=== PATIENT | female | born 1940 | race Caucasian/White ===

== ENCOUNTER 2019-07-08 07:47 | Inpatient (IN) ==
--- NOTE | 2019-06-04 13:09 | PAT Medication Instructions ---
Medication Instructions Date of Service June 04, 2019 Home Medications clopidogrel [Plavix] 75 mg PO QAM fluticasone propionate [Flonase Allergy Relief] 2 spray INTRANASAL QAM PRN [id number] [Krill Oil ([place] 3 and 6)] 1 cap PO QPM metoprolol tartrate 25 mg PO BID multivitamin 1 tab PO QAM pravastatin 10 mg PO Q2D triamterene-hydrochlorothiazid [Dyazide] 1 cap PO QAM Continue as directed pravastatin 10 mg PO Q2D ASK your prescriber and surgeon clopidogrel [Plavix] 75 mg PO QAM (in order for spinal anesthesia, clopidogrel/plavix needs to be stopped 7 days before surgery. Please check if okay with doctor that prescribes this to you) STOP taking 2 weeks before surgery (or as soon as possible if surgery is within 2 weeks) [id number] [Krill Oil ([place] 3 and 6)] 1 cap PO QPM DO NOT take the morning of surgery multivitamin 1 tab PO QAM triamterene-hydrochlorothiazid [Dyazide] 1 cap PO QAM Take morning of surgery With a small sip of water, OTHERWISE NOTHING TO EAT OR DRINK AFTER MIDNIGHT: fluticasone propionate [Flonase Allergy Relief] 2 spray INTRANASAL QAM PRN (if needed) metoprolol tartrate 25 mg PO BID Take evening before surgery fluticasone propionate [Flonase Allergy Relief] 2 spray INTRANASAL QAM PRN (if needed) metoprolol tartrate 25 mg PO BID Other Notes If you have any questions please call us at [phone] or [phone] or [phone] or [phone]
--- NOTE | 2019-06-07 10:33 | Anesthesiology Consultation ---
Date of Service June 07, 2019 Assessment & Plan (1) Encounter for pre-operative examination: - Check BSG AM DOS Chart Review Chart Review: Acceptable Risk for Surgery and Patient seen in Pre Admission Testing Teaching & Discussion Pre-Anesthesia Teaching/Discussion Notes: Instructed NPO after midnight before surgery,except medications with 15 cc of water. Medication instructions provided according to the PAT guidelines. History Surgery Operation Date: 07/08/19 08:15 Proposed Procedures p Left Total Knee Arthroplasty - David Gilbert MD Height/Weight Height: 4 ft 11 in Weight: 53.7 kg Allergies Allergy/AdvReac Type Severity Reaction Status Date / Time erythromycin base Allergy Unknown HIVES,NAUSEA,FELT Verified 06/07/19 10:32 ILL felodipine Allergy Unknown SWELLING Verified 06/07/19 10:32 metronidazole Allergy Unknown RASH Verified 06/03/19 14:22 aspirin AdvReac Severe EAR RINGING Verified 06/07/19 10:32 MAYRA Inhibitors AdvReac Unknown COUGH Verified 06/07/19 10:32 ibuprofen AdvReac Unknown "MELODIES Verified 06/07/19 10:32 IN EAR" colesevelam AdvReac BLOATING Verified 06/07/19 10:32 niacin AdvReac HEADACHES, Verified 06/07/19 10:32 GI UPSET [id number]-[id number]-Pdl Reductase AdvReac MUSCLE Verified 06/07/19 10:32 Inhibitor WEAKNESS Sulfa (Sulfonamide AdvReac NAUSEA Verified 06/07/19 10:32 Antibiotics) Medications Home Medications Medication Instructions Recorded Confirmed Last Taken clopidogrel [Plavix] 75 mg PO QAM 06/03/19 06/03/19 Unknown fluticasone propionate [Flonase 2 spray INTRANASAL QAM PRN 06/03/19 06/03/19 Unknown Allergy Relief] [id number]-bzq-[id number] 1 cap PO QPM 06/03/19 06/03/19 Unknown [Krill Oil ([place] 3 and 6)] metoprolol tartrate 25 mg PO BID 06/03/19 06/03/19 Unknown multivitamin 1 tab PO QAM 06/03/19 06/03/19 Unknown pravastatin 10 mg PO Q2D 06/03/19 06/03/19 Unknown triamterene-hydrochlorothiazid 1 cap PO QAM 06/03/19 06/03/19 Unknown [Dyazide] Past Medical History Medical History Borderline diabetes diet controlled Chronic back pain sciatica, left ankle pain CVA (cerebral vascular accident) 09/2018- placed on plavix/no residual effects History of urinary urgency Hyperlipidemia Hypertension Osteoarthritis Exercise / Class Metabolic Activity II 4-5 Yardwork/Stairs/Walk up hill Past Family History Family History Mother Family history of diabetes mellitus DIET MANAGED Past Surgical History Surgical History History of adenoidectomy History of bilateral tubal ligation History of carpal tunnel release RIGHT History of cholecystectomy History of colonoscopy History of esophagogastroduodenoscopy (EGD) WITH DILITATION History of tonsillectomy History of total knee replacement RIGHT Past Anesthesia History No Hx of Anesthesia Complications and No Family Hx of Anesthesia Complications History of PONV No Hx of PONV and No Hx of Motion Sickness Social History Smoking Status: Never smoker Do You Dip or Chew Tobacco: No Hx Alcohol Use: Yes Alcohol type: wine Alcohol Intake Frequency Comment: RARE Hx Substance Use: No Review of Systems Patient denies chest pain, shortness of breath, dyspnea on exertion, cough, wheezing, palpitations. Physical Exam Vital Signs VITALS BP 138/83 P 66 TEMP 97.6 SP02 95%RA RESP 16 PHYSICAL Full neck and c-spine range of motion. Full TMJ range of motion. TMD 3 finger breaths Mallampati Score 2 Dentition: several chipped teeth, missing molar Lungs: clear throughout to auscultation Cardiac: regular rate and rhythm, no murmurs noted Spine: normal Carotid arteries: negative bruit Extremities: no edema Testing Laboratory Results 06/07/19 11:25 06/07/19 11:25 PT 10.2 Seconds (9.0-12.0) 06/07/19 11:25 INR 1.0 (0.9-1.1) 06/07/19 11:25 APTT 25.6 Seconds (21.0-31.0) 06/07/19 11:25 Hemoglobin A1c 6.1 % (4.5-5.6) H 06/07/19 11:25 Urine Color Yellow 06/07/19 11:25 Urine Appearance Clear (Clear) 06/07/19 11:25 Urine pH 6.0 (4.5-7.5) 06/07/19 11:25 Ur Specific [place] 1.016 (1.000-1.030) 06/07/19 11:25 Urine Protein Negative (Negative) 06/07/19 11:25 Urine Glucose (UA) Negative (Negative) 06/07/19 11:25 Urine Ketones Negative (Negative) 06/07/19 11:25 Urine Nitrite Negative (Negative) 06/07/19 11:25 Ur Leukocyte Esterase Negative (Negative) 06/07/19 11:25 Blood Type O Positive 06/07/19 11:25 Antibody Screen NEGATIVE 06/07/19 11:25 Electrocardiogram Date: 06/07/19 Findings: + SB @ (55) Chest X-Ray Date: 06/07/19 There is mild bibasilar scarring/atelectasis. No airspace consolidation or pleural effusion is identified. There is no pneumothorax. The skeletal structures are osteopenic. The bony thorax appears intact. Cholecystectomy clips are seen in the right upper quadrant. IMPRESSION: No active disease in the chest. Echocardiogram Date: 09/04/18 LV EF greater than 70% (hyperdynamic). Mild TR. Bubble study negative for right to left intracardiac shunt. Mild LAE. No regional wall motion abnormality. Other Testing CTA Head/neck: 09/03/18: Atherosclerotic calcifications are present in the intracranial carotid arteries without hemodynamically significant stenosis. A small focal filling defect in the proximal right PICA more likely represents a nonobstructive thrombus; a focal dissection is considered less likely, but cannot be excluded. No additional significant abnormalities identified in the cervical and intracranial vessels. MRI Brain: 09/03/18: A small acute/early subacute right PICA ischemic infarct in the right cerebellar hemisphere without associated hemorrhagic transformation or mass effect. This abnormality is likely responsible for the patient's symptoms. Mild to moderate generalized age-related cerebral parenchymal atrophy and moderate chronic small vessel white matter ischemic changes.
[2019-06-07 11:49] LABS: Appearance Urine Clear (Clear); Basophils # (auto) 0.02 K/uL (0-0.2); Basophils % (auto) 0.5 %; Bilirubin Urine Negative (Negative); Blood Urine Negative (Negative); Color Urine Yellow; Eosinophils % (auto) 2.3 %; Glucose Urine UA Negative (Negative); Hematocrit (blood only) 40.8 % (37-47); Immature Granulocytes # (auto) 0.01 K/uL (0.00-0.02); Immature Granulocytes % (auto) 0.2 %; Ketones Urine Negative (Negative); Leukocyte Esterase Urine Negative (Negative); Lymphocytes # (auto) 0.74 K/uL (1.2-3.4); Lymphocytes % (auto) 17.1 %; Mean Corpuscular Hemoglobin 32.4 pg (25-34); Mean Corpuscular Hgb Conc 34.3 g/dL (32-36); Mean Corpuscular Volume 94.4 fL (80-100); Mean Platelet Volume 10.2 fL (7.4-10.4); Monocytes # (auto) 0.32 K/uL (0.11-0.59); Monocytes % (auto) 7.4 %; Neutrophils # (auto) 3.15 K/uL (1.4-6.5); Neutrophils % (auto) 72.5 %; Nitrite Urine Negative (Negative); Platelet Count 240 K/uL (130-400); Protein Urine Negative (Negative); RDW Coefficient of Variation 12.5 % (11.5-14.5); RDW Standard Deviation 43.1 fL (36.4-46.3); Red Blood Count 4.32 M/uL (4.2-5.4); Specific Gravity Urine 1.016 (1.000-1.030); Urobilinogen Urine Negative (Negative); White Blood Count 4.34 K/uL (4.8-10.8)
[2019-06-07 12:01] LABS: Partial Thromboplastin Ratio 0.9; Partial Thromboplastin Time 25.6 Seconds (21.0-31.0); Prothrombin Time 10.2 Seconds (9.0-12.0)
--- NOTE | 2019-06-07 12:03 | XRay Report ---
TWO VIEW CHEST CLINICAL HISTORY: Preoperative examination. FINDINGS: PA and lateral chest radiographs are compared to study dated 04/20/2012. The cardiomediasti nal silhouette is unremarkable. There is mild bibasilar scarring/atelectasis. No airspace consolidati on or pleural effusion is identified. There is no pneumothorax. The skeletal structures are osteopeni c. The bony thorax appears intact. Cholecystectomy clips are seen in the right upper quadrant. IMPRESSION: No active disease in the chest. ACT 112: Negative or not required by law. Electronically signed by: Tommy Gillespie M.D. 06/07/2019 12:01 PM
[2019-06-07 12:15] LABS: Estimated Average Glucose 128 mg/dl; Hemoglobin A1C 6.1 % (4.5-5.6)
--- NOTE | 2019-06-07 12:56 | Electrocardiogram Report ---
Test Reason : Blood Pressure : / mmHG Vent. Rate : 055 BPM Atrial Rate : 055 BPM P-R Int : 132 ms QRS Dur : 076 ms QT Int : 414 ms P-R-T Axes : 018 013 058 degrees QTc Int : 396 ms Sinus bradycardia Otherwise normal ECG When compared with ECG of 20-APR-2012 11:19, Nonspecific T wave abnormality no longer evident in Inferior leads Confirmed by Sanjay Magallanes ([id number]) on 06/07/2019 12:55:50 PM Referred By: David Gilbert Confirmed By:Sanjay Magallanes
[2019-06-07 14:17] LABS: Albumin Level 3.9 gm/dl (3.4-5.0); BUN Creatinine Ratio 23.3 (10-20); Calcium 10.8 mg/dl (8.5-10.1); Creatinine Clr Calc Pharmacy 29.8 ml/min; Est GFR (African American) 50.8; Est GFR (Non-African American) 43.9; Potassium 3.7 mmol/L (3.5-5.1)
--- NOTE | 2019-06-14 14:52 | History & Physical Report ---
Date of Service June 14, 2019 Assessment & Plan (1) Primary osteoarthritis of left knee: Treatment options discussed. She has failed conservative measures as above. Risks, benefits and alternatives to surgery including but not limited to infection, DVT, pain, stiffness, need for revision surgery, damage to blood vessels, damage to nerves, PE, , were discussed with the patient and they wish to proceed. Plan will be for left total knee arthroplasty at [facility] on 07/08/19. Will plan on resuming her home Plavix as DVT prophyalxis. She would like to go home with home health PT upon discharge from the hospital. All questions answered. She will follow up post operatively. History of Present Illness Chief Complaint: Left knee pain Primary Care Provider: NO PCP Patient is a 79 year old female with PMHx significant for HTN, high cholesterol, CVA who presents with ongoing left knee pain. Previously has done well with right knee replacement. Pain affects her ability to carry out the things she wants to do. She has failed conservative measures including cortisone injections. Unable to have NSAIDs due to being on Plavix. She would like to proceed with left knee replacement. Patient denies headaches, sweats, fevers, chills, double vision, blurred vision, cough, sore throat, dysphagia, chest pain, sob, wheezing, n/v/d/c, numbness, tingling, fatigue, urinary symptoms, mood disorders. ROS positive for left knee pain and stiffness. Allergies Allergy/AdvReac Type Severity Reaction Status Date / Time erythromycin base Allergy Unknown HIVES,NAUSEA,FELT Verified 06/07/19 10:32 ILL felodipine Allergy Unknown SWELLING Verified 06/07/19 10:32 metronidazole Allergy Unknown RASH Verified 06/03/19 14:22 aspirin AdvReac Severe EAR RINGING Verified 06/07/19 10:32 MAYRA Inhibitors AdvReac Unknown COUGH Verified 06/07/19 10:32 ibuprofen AdvReac Unknown "MELODIES Verified 06/07/19 10:32 IN EAR" colesevelam AdvReac BLOATING Verified 06/07/19 10:32 niacin AdvReac HEADACHES, Verified 06/07/19 10:32 GI UPSET Totnxow-Gzz-Dsv Reductase AdvReac MUSCLE Verified 06/07/19 10:32 Inhibitor WEAKNESS Sulfa (Sulfonamide AdvReac NAUSEA Verified 06/07/19 10:32 Antibiotics) Home Medications Home Medications Medication Instructions Recorded Confirmed Type clopidogrel [Plavix] 75 mg PO QAM 06/03/19 06/03/19 History fluticasone propionate [Flonase 2 spray INTRANASAL QAM PRN 06/03/19 06/03/19 History Allergy Relief] [id number]-[id number]-[id number]-[id number] 1 cap PO QPM 06/03/19 06/03/19 History [Krill Oil ([place] 3 and 6)] metoprolol tartrate 25 mg PO BID 06/03/19 06/03/19 History multivitamin 1 tab PO QAM 06/03/19 06/03/19 History pravastatin 10 mg PO Q2D 06/03/19 06/03/19 History triamterene-hydrochlorothiazid 1 cap PO QAM 06/03/19 06/03/19 History [Dyazide] Past Med/Surg History Medical History Borderline diabetes diet controlled Chronic back pain sciatica, left ankle pain CVA (cerebral vascular accident) 09/2018- placed on plavix/no residual effects History of urinary urgency Hyperlipidemia Hypertension Osteoarthritis Surgical History History of adenoidectomy History of bilateral tubal ligation History of carpal tunnel release RIGHT History of cholecystectomy History of colonoscopy History of esophagogastroduodenoscopy (EGD) WITH DILITATION History of tonsillectomy History of total knee replacement RIGHT Family History Mother Family history of diabetes mellitus DIET MANAGED Social History Preferred Language: [place] Communication Ability: Effective 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: No Beliefs That Will Affect Care: None Current Living Situation: Alone Other Information That Helps Us Care for You: No Feels Safe at Home: Yes Safety Concerns: Feels Safe At This Time Smoking Status: Never smoker Do You Dip or Chew Tobacco: No ; Second Hand Exposure: Yes (SPOSUE USED TO SMOKE) ; Hx Alcohol Use: Yes Alcohol type: wine Hx Substance Use: No Review of Systems All systems reviewed & are unremarkable except as noted in HPI & below Physical Exam Constitutional: well developed and well nourished; no acute distress Eyes: PERRL, conjunctivae normal, anicteric sclerae ENMT: external ear and nose normal, oropharynx normal Neck: trachea midline, no thyromegaly Respiratory: normal respiratory effort, lungs clear to auscultation Cardiovascular: RRR, no murmur, no edema Musculoskeletal: Left knee: Left knee: Skin is normal. No lymphadenopathy is appreciated. Mild effusion, range of motion 3 - 125 flexion, negative anterior drawer, negative posterior drawer, negative Alex's, knee stable to varus and valgus stress at 0 to 30 of flexion. Tender to palpation medial joint line, positive Anil's. Varus deformity Skin: no rashes, warm and dry Neurologic: patellar DTR's 2+ bilat, sensation intact Psychiatric: A+Ox3, euthymic affect Results & Data Laboratory Results Lab Results 06/07/19 06/07/19 06/07/19 Range/Units 11:25 11:25 11:25 WBC 4.34 L (4.8-10.8) K/uL RBC 4.32 (4.2-5.4) M/uL Hgb 14.0 (12.0-16.0) g/dL Hct 40.8 (37-47) % MCV 94.4 (80-100) fL MCH 32.4 (25-34) pg MCHC 34.3 (32-36) g/dL RDW Std Deviation 43.1 (36.4-46.3) fL RDW Coeff of Ariana 12.5 (11.5-14.5) % Plt Count 240 (130-400) K/uL MPV 10.2 (7.4-10.4) fL Immature Gran % (Auto) 0.2 % Neut % (Auto) 72.5 % Lymph % (Auto) 17.1 % [place] % (Auto) 7.4 % Eos % (Auto) 2.3 % Baso % (Auto) 0.5 % Immature Gran # (Auto) 0.01 (0.00-0.02) K/uL Neut # (Auto) 3.15 (1.4-6.5) K/uL Lymph # (Auto) 0.74 L (1.2-3.4) K/uL [place] # (Auto) 0.32 (0.11-0.59) K/uL Eos # (Auto) 0.10 (0-0.5) K/uL Baso # (Auto) 0.02 (0-0.2) K/uL PT 10.2 (9.0-12.0) Seconds INR 1.0 (0.9-1.1) APTT 25.6 (21.0-31.0) Seconds PTT Ratio 0.9 Sodium 137 (136-145) mmol/L Potassium 3.7 (3.5-5.1) mmol/L Chloride 104 (98-107) mmol/L Carbon Dioxide 28 (21-32) mmol/L Anion Gap 5.0 (3-11) BUN 28 H (7-18) mg/dl Creatinine 1.20 (0.6-1.2) mg/dl Est Cr Clr Drug Dosing 29.8 ml/min Est GFR ( Amer) 50.8 Est GFR (Non-Af Amer) 43.9 BUN/Creatinine Ratio 23.3 H (10-20) Glucose 116 H (70-99) mg/dl Estimat Average Glucose mg/dl Hemoglobin A1c (4.5-5.6) % Calcium 10.8 H (8.5-10.1) mg/dl Albumin 3.9 (3.4-5.0) gm/dl Urine Color Urine Appearance (Clear) Urine pH (4.5-7.5) Ur Specific [place] (1.000-1.030) Urine Protein (Negative) Urine Glucose (UA) (Negative) Urine Ketones (Negative) Urine Blood (Negative) Urine Nitrite (Negative) Urine Bilirubin (Negative) Urine Urobilinogen (Negative) Ur Leukocyte Esterase (Negative) Blood Type Antibody Screen 06/07/19 06/07/19 06/07/19 Range/Units 11:25 11:25 11:25 WBC (4.8-10.8) K/uL RBC (4.2-5.4) M/uL Hgb (12.0-16.0) g/dL Hct (37-47) % MCV (80-100) fL MCH (25-34) pg MCHC (32-36) g/dL RDW Std Deviation (36.4-46.3) fL RDW Coeff of Ariana (11.5-14.5) % Plt Count (130-400) K/uL MPV (7.4-10.4) fL Immature Gran % (Auto) % Neut % (Auto) % Lymph % (Auto) % [place] % (Auto) % Eos % (Auto) % Baso % (Auto) % Immature Gran # (Auto) (0.00-0.02) K/uL Neut # (Auto) (1.4-6.5) K/uL Lymph # (Auto) (1.2-3.4) K/uL [place] # (Auto) (0.11-0.59) K/uL Eos # (Auto) (0-0.5) K/uL Baso # (Auto) (0-0.2) K/uL PT (9.0-12.0) Seconds INR (0.9-1.1) APTT (21.0-31.0) Seconds PTT Ratio Sodium (136-145) mmol/L Potassium (3.5-5.1) mmol/L Chloride (98-107) mmol/L Carbon Dioxide (21-32) mmol/L Anion Gap (3-11) BUN (7-18) mg/dl Creatinine (0.6-1.2) mg/dl Est Cr Clr Drug Dosing ml/min Est GFR ( Amer) Est GFR (Non-Af Amer) BUN/Creatinine Ratio (10-20) Glucose (70-99) mg/dl Estimat Average Glucose 128 mg/dl Hemoglobin A1c 6.1 H (4.5-5.6) % Calcium (8.5-10.1) mg/dl Albumin (3.4-5.0) gm/dl Urine Color Yellow Urine Appearance Clear (Clear) Urine pH 6.0 (4.5-7.5) Ur Specific [place] 1.016 (1.000-1.030) Urine Protein Negative (Negative) Urine Glucose (UA) Negative (Negative) Urine Ketones Negative (Negative) Urine Blood Negative (Negative) Urine Nitrite Negative (Negative) Urine Bilirubin Negative (Negative) Urine Urobilinogen Negative (Negative) Ur Leukocyte Esterase Negative (Negative) Blood Type O Positive Antibody Screen NEGATIVE Diagnostic Findings Left knee radiographs: Pxro-pe-fwzk medial compartment with periarticular osteophyte formation and subchondral sclerosis.
[~2019-07-08 07:47] MED LIST: ACETAMINOPHEN 500 MG TAB PO SCH; BUPIVACAINE 0.5 % 5 MG/1 ML PF 10ML VIAL ONE; CEFAZOLIN 2000MG 2,000 MG/15 ML SYR IV SCH; CeleBREX 200 MG CAP PO SCH; FAMOTIDINE 20 MG TAB PO SCH; GABAPENTIN 300 MG CAP PO SCH; LR 500ML BOLUS, THEN 15ML/HR IV SCH; METOCLOPRAMIDE HCL 10 MG TABLET PO SCH; OXYCODONE HCL 10 MG TABCR (OXYCONTIN) PO SCH; ROPIVACAINE 0.5% 5 MG/ML 30 ML VIAL ONE; ROPIVACAINE 0.5% HCL/PF 150 MG, BUPIVACAINE 0.5% MPF 30 ML, EPINEPHrine 30MG/30ML (OR U... INSTIL SCH; [UNRECOGNIZED DRUG - REMARK] SCH
--- NOTE | 2019-07-08 08:50 | History & Physical Bridge Note ---
Date of Service July 08, 2019 History & Physical Bridge Note I have examined the patient, reviewed the History & Physical and in the interval since the performance of the History & Physical I have noted the following changes of clinical significance: no changes noted
[2019-07-08] MEDS ORDERED: PROPOFOL IV EMULSION 10 MG/ML 20 ML VIAL IV ONE ×2 (08:57→11:32)
[2019-07-08] MEDS ORDERED: LIDOCAINE HCL 2% 2 ML VIAL/AMP(20MG/ML) INFIL ONE (08:57)
[2019-07-08] MEDS ORDERED: MIDAZOLAM HCL 1 MG/ML 2ML VIAL ONE (08:58)
[2019-07-08] MEDS ORDERED: ORTHO JOINT ANESTHETIC ONE (09:00)
[2019-07-08] MEDS ORDERED: BACITRACIN INJ 50,000 UNIT VIAL ONE (09:00)
[2019-07-08] MEDS ORDERED: ATROPINE SULFATE 0.1 MG/ML 10ML SYR IV PRN (10:25)
[2019-07-08] MEDS ORDERED: ePHEDrine sulfate 50 MG/ML AMP IV PRN (10:25)
[2019-07-08] MEDS ORDERED: ONDANSETRON INJ 2 MG/ML 2 ML VIAL ONE (11:22)
[2019-07-08] MEDS ORDERED: ePHEDrine sulfate 50 MG/ML SYR ONE (11:32)
[2019-07-08] MEDS ORDERED: PHENYLEPHRINE 100MCG/ML 5ML SYR ONE (11:32)
--- NOTE | 2019-07-08 11:41 | Operative Report ---
Post Operative Report Pre & Post Diagnosis Operation Date: 07/08/19 10:35 Pre-Op Diagnosis: Left Knee Primary Osteoarthritis Post-Op Diagnosis: Left Knee Primary Osteoarthritis I identified the patient and participated in the time-out.: Yes Procedure Operation Date: 07/08/19 10:35 Actual Procedures p Left Total Knee Arthroplasty(Left) - David Gilbert MD Surgeon David Gilbert MD Political Geographer Roque Craig PA-C Estimated Blood Loss 20 Findings Consistent with Post-Op Diagnosis Specimens Bone and tissue Drains 2 Hemovac Anesthesia Type MAC Spinal Regional Complications none Disposition Accompanied Patient To Recovery: No Disposition: Recovery Room Indications The patient is a 79-year-old female longstanding in the left knee. She has zlss-af-[id number] medial compartment with tricompartmental arthritic change in the rest of the knee. She is failed conservative measures include injection and rehab. She is on Plavix and aspirin chronically and cannot take nonsteroidal anti-inflammatory medications. She was to proceed with a left total knee arthroplasty. Description of Procedure Risks benefits and alternatives of surgery including but not limited to infection, DVT, pain, stiffness, need for surgery, damage to blood vessels, damage to nerves or risks of anesthesia were discussed with the patient and they wished to proceed. The patient was identified and the laterality was confirmed and marked. They received a preoperative antibiotic as well as a spinal anesthetic and an abductor canal block. A well-padded tourniquet was applied and then the limb was prepped and draped in standard manner with ChloraPrep. The limb was exsanguinated and the tourniquet was inflated. I made a standard anterior incision. I sharply incised the skin then utilized Bovie electrocautery to achieve hemostasis. I made a medial parapatellar arthrotomy and mobilized the patella laterally. I then excised the anterior horns of the medial and lateral meniscus as well as the infrapatellar fat pad. I elevated a portion of the MCL off of the tibia. I then pinned into place a patient-matched distal femoral cutting guide and made my distal femoral resection. I then pinned into place the 5 in 1 femoral cutting guide. I made my anterior, posterior and chamfer cuts. I then excised the cruciates and the remaining portions of the menisci. I then pinned into place a patient- matched tibial cutting guide and made my tibial resection. I then pinned into place the tibial plate a utilizing alignment joanie to confirm rotation. The patient matched tibial guide was not giving us appropriate alignment even after we repositioned it several times I did not like the rotation that we are getting. I therefore remove the patient most of the guide placed an extra-articular cutting guide in place and made my tibial resection. I then cut for the post. Utilizing a lamina sleeve baster and I then removed pos terior osteophytes off the femur. I then placed a trial femur into position and cut for the trochlear component. I then sequentially trialed to size the polyethylene until there was good soft tissue balancing and range of motion. I then prepared the patella with a freehand cut utilizing sagittal saw. I sized and drilled for the patella. There was good tracking to the patella no lateral release was needed. All the trial components were removed. The deep tissues were anesthetized with an ortho mix solution. Then with Simplex HV with gentamicin cement, I cemented my definitive components. Definitive components, Johns and Nephew Rosa 2: Femur 3 Tibia 1 Poly 11 Patella 29 round A betadine soak was performed. A deep drain was placed. The arthrotomy was closed with interrupted #1 Vicryl suture subcutaneous tissue was closed with interrupted 2-0 Vicryl suture. The skin was closed with with josefa. An Acticoat and Alexander dressing were placed. Sterile dressings were applied. All needle and sponge counts were correct at the end of the procedure patient was transferred to the PACU in stable condition without apparent complication. The PA-C was necessary for assistance with procedure for assistance in positioning, prepping, draping, retraction and closure. I attest to the content of the Intraoperative Record and any orders documented therein. Any exceptions are noted below.
--- NOTE | 2019-07-08 12:47 | XRay Report ---
TWO VIEWS LEFT KNEE CLINICAL HISTORY: Postoperative examination. FINDINGS: AP and crosstable lateral portable views of the left knee are obtained. A left knee arthrop lasty is in near anatomic alignment. There has been undersurface remodeling of the patella. There is likely a tiny avulsion fracture along the medial tibial metaphysis No additional findings are concern ing for acute fracture. There are expected postoperative changes around the knee including skin clips , a surgical drain, soft tissue edema, and subcutaneous gas. IMPRESSION: 1. Expected postoperative changes status post left knee arthroplasty. 2. There is likely a tiny avulsion fracture along the medial tibial metaphysis. 3. No additional findings are concerning for acute fracture. ACT 112: Negative or not required by law. Results electronically sent 07/08/2019 12:46 PM to: Roque Craig PA-C Electronically signed by: Tommy Gillespie M.D. 07/08/2019 12:46 PM
[2019-07-08] MEDS ORDERED: FLUTICASONE PROPIONATE NA SPR 16 GM BTL PRN (13:31)
[2019-07-08] MEDS ORDERED: MAGNESIUM HYDROXIDE SUSP 30 ML UDC PO PRN (13:32)
[2019-07-08] MEDS ORDERED: NALOXONE HCL 0.4 MG/1 ML VIAL/CARP IV PRN (13:32)
[2019-07-08] MEDS ORDERED: ONDANSETRON INJ 2 MG/ML 2 ML VIAL IV PRN (13:32)
[2019-07-08] MEDS ORDERED: bisacodyL 10 MG SUPP PR PRN (13:32)
[2019-07-08] MEDS ORDERED: OXYCODONE HCL IR 5 MG TAB (IMMEDIATE RELEASE) PO PRN (13:32)
[2019-07-08] MEDS ORDERED: HYDROmorphone INJ 0.5 MG/0.5 ML SYR IV PRN (13:32)
[2019-07-08] MEDS: SODIUM CHLORIDE 0.9% 1000ML 1,000 ML IV SCH ×2 (14:02→23:54)
--- NOTE | 2019-07-08 14:07 | Anesthesiology Progress Note ---
Date of Service July 08, 2019 Anesthesia Post Procedure Vital Signs Vital Signs: Temp Pulse Resp BP Pulse Ox 07/08/19 13:43 34.4 C L 62 18 122/68 97 07/08/19 13:17 62 18 119/62 100 07/08/19 12:55 54 L 16 119/55 L 96 07/08/19 12:45 36.3 C L 59 L 18 112/47 L 98 07/08/19 12:35 58 L 16 118/76 98 07/08/19 12:25 60 20 117/57 L 100 07/08/19 12:15 75 20 111/55 L 100 07/08/19 12:07 36.2 C L 67 12 98/49 L 99 07/08/19 09:10 36.6 C 60 20 150/70 H 93 Transfer of Care Handoff Completed per policy Notes Mental Status: alert / awake / arousable and participated in evaluation Patient Amnestic to Procedure: Yes Nausea / Vomiting: adequately controlled Pain: adequately controlled Airway Patency, RR, SpO2: stable & adequate BP & HR: stable & adequate Hydration State: stable & adequate Neuraxial Anesthesia: was administered and sensory block is resolving Anesthetic Complications: no major complications apparent
[2019-07-08] MEDS: ACETAMINOPHEN 500 MG TAB PO SCH (18:27)
[2019-07-08] MEDS: FERROUS GLUCONATE 324 MG TAB PO SCH (18:28)
[2019-07-08] MEDS: CEFAZOLIN 1000MG 1,000 MG/7.5 ML SYR IV SCH (18:35)
[2019-07-08] MEDS: METOPROLOL TARTRATE 25 MG TAB PO SCH (20:42)
[2019-07-08] MEDS: SENNA 8.6 MG TAB PO SCH (20:45)
[2019-07-08] MEDS: DOCUSATE SODIUM 100 MG CAP PO SCH (20:45)
[2019-07-09] MEDS: CEFAZOLIN 1000MG 1,000 MG/7.5 ML SYR IV SCH (02:26)
[2019-07-09] MEDS: ACETAMINOPHEN 500 MG TAB PO SCH ×3 (05:46→21:01)
[2019-07-09 05:57] LABS: Hematocrit (blood only) 28.1 % (37-47); Hemoglobin 9.4 g/dL (12.0-16.0); Mean Corpuscular Hemoglobin 31.4 pg (25-34); Mean Corpuscular Hgb Conc 33.5 g/dL (32-36); Mean Platelet Volume 10.3 fL (7.4-10.4); Platelet Count 248 K/uL (130-400); RDW Coefficient of Variation 12.5 % (11.5-14.5); Red Blood Count 2.99 M/uL (4.2-5.4)
[2019-07-09 06:38] LABS: Calcium 8.5 mg/dl (8.5-10.1); Creatinine Clr Calc Pharmacy 32.6 ml/min; Est GFR (African American) 57.3; Est GFR (Non-African American) 49.5
--- NOTE | 2019-07-09 07:18 | Orthopedic Progress Note ---
Date of Service July 09, 2019 Assessment & Plan (1) Primary osteoarthritis of left knee: POD#1 Left TKA -Pain management -PT/OT -DVT prophylaxis-SCDs, TEDs, patient resuming home Plavix -D/C planning-planning on home with likely OPPT upon discharge likely tomorrow -AM labs-hemoglobin this morning 9.4 from 14 preop. Acute blood loss anemia due to surgical loss and dilutional effect Admission and Anticipated Discharge Date Admission Date: July 08, 2019 Subjective Patient is resting in bed comfortably. She notes pain is tolerable at this time. Was having issues with BP overnight being hypotensive. IV fluids were kept running and pressures have improved. No complaints of chest pain, sob, dizziness, light headed, nausea or vomiting. Review of Systems Review of Systems: All systems reviewed & are unremarkable except as noted in HPI & below Physical Exam Physical Exam: Left knee dressing is c/d/i, CHARLENE is suctioning. Toes mobile. No calf tenderness. Good dorsiflexion. Distally n/v status and sensation intact Constitutional: well developed and well nourished; no acute distress Results & Data ([facility]) Vital Signs (Past 12 Hours) Vital Signs Temp Pulse Resp BP BP Pulse Ox 07/09/19 03:00 36.4 C L 86 15 116/61 93 07/08/19 23:17 36.4 C L 69 14 94/54 L 98 07/08/19 20:17 36.4 C L 70 16 94/50 L 97 Laboratory Results H & H 06/07/19 07/09/19 Range/Units 11:25 05:22 Hgb 14.0 9.4 L (12.0-16.0) g/dL Hct 40.8 28.1 L (37-47) % Coagulation 06/07/19 Range/Units 11:25 INR 1.0 (0.9-1.1)
--- NOTE | 2019-07-09 08:11 | Anesthesiology Progress Note ---
Date of Service July 09, 2019 Anesthesia Post Procedure Vital Signs Vital Signs: Temp Pulse Resp BP BP Pulse Ox 07/09/19 07:33 36.6 C 55 L 16 110/66 96 07/09/19 07:26 36.5 C 72 16 106/56 L 91 07/09/19 03:00 36.4 C L 86 15 116/61 93 07/08/19 23:17 36.4 C L 69 14 94/54 L 98 07/08/19 20:17 36.4 C L 70 16 94/50 L 97 07/08/19 16:15 35.4 C L 56 L 16 99/57 L 99 07/08/19 15:10 36.6 C 61 16 103/61 99 07/08/19 14:15 55 L 16 137/72 99 07/08/19 13:43 34.4 C L 62 18 122/68 97 07/08/19 13:17 62 18 119/62 100 07/08/19 12:55 54 L 16 119/55 L 96 07/08/19 12:45 36.3 C L 59 L 18 112/47 L 98 07/08/19 12:35 58 L 16 118/76 98 07/08/19 12:25 60 20 117/57 L 100 07/08/19 12:15 75 20 111/55 L 100 07/08/19 12:07 36.2 C L 67 12 98/49 L 99 07/08/19 09:10 36.6 C 60 20 150/70 H 93 Notes Mental Status: alert / awake / arousable and participated in evaluation Patient Amnestic to Procedure: Yes Nausea / Vomiting: adequately controlled Pain: adequately controlled Airway Patency, RR, SpO2: stable & adequate BP & HR: stable & adequate Hydration State: stable & adequate Neuraxial Anesthesia: was administered and sensory block resolved Anesthetic Complications: no major complications apparent and Pt Satisfied with anesthetic care
[2019-07-09] MEDS: FERROUS GLUCONATE 324 MG TAB PO SCH ×2 (08:41→17:38)
[2019-07-09] MEDS: DOCUSATE SODIUM 100 MG CAP PO SCH ×2 (08:41→20:29)
[2019-07-09] MEDS: CLOPIDOGREL BISULFATE 75 MG TAB PO SCH (08:41)
[2019-07-09] MEDS: MULTIVITAMIN TAB PO SCH (08:41)
[2019-07-09] MEDS: METOPROLOL TARTRATE 25 MG TAB PO SCH ×2 (08:41→20:29)
[2019-07-09] MEDS: SENNA 8.6 MG TAB PO SCH (20:29)
[2019-07-09] MEDS ORDERED: PRAVASTATIN SOD 10 MG TAB PO SCH (21:00)
[2019-07-10] MEDS: ACETAMINOPHEN 500 MG TAB PO SCH ×2 (05:39→13:14)
[2019-07-10 05:50] LABS: Eosinophils # (auto) 0.01 K/uL (0-0.5); Eosinophils % (auto) 0.1 %; Hematocrit (blood only) 29.4 % (37-47); Hemoglobin 9.7 g/dL (12.0-16.0); Immature Granulocytes # (auto) 0.02 K/uL (0.00-0.02); Immature Granulocytes % (auto) 0.3 %; Lymphocytes # (auto) 0.68 K/uL (1.2-3.4); Lymphocytes % (auto) 8.7 %; Mean Corpuscular Hemoglobin 31.4 pg (25-34); Mean Corpuscular Volume 95.1 fL (80-100); Mean Platelet Volume 10.3 fL (7.4-10.4); Monocytes # (auto) 0.67 K/uL (0.11-0.59); Monocytes % (auto) 8.6 %; Neutrophils % (auto) 82.3 %; Platelet Count 232 K/uL (130-400); RDW Standard Deviation 44.4 fL (36.4-46.3); Red Blood Count 3.09 M/uL (4.2-5.4); White Blood Count 7.78 K/uL (4.8-10.8)
[2019-07-10] MEDS: MULTIVITAMIN TAB PO SCH (07:44)
[2019-07-10] MEDS: METOPROLOL TARTRATE 25 MG TAB PO SCH (07:45)
[2019-07-10] MEDS: DOCUSATE SODIUM 100 MG CAP PO SCH (07:45)
[2019-07-10] MEDS: CLOPIDOGREL BISULFATE 75 MG TAB PO SCH (07:45)
[2019-07-10] MEDS: FERROUS GLUCONATE 324 MG TAB PO SCH (07:45)
--- NOTE | 2019-07-10 09:03 | Orthopedic Progress Note ---
Date of Service July 10, 2019 Assessment & Plan (1) Primary osteoarthritis of left knee: POD#2 Left TKA -Pain management -PT/OT -DVT prophylaxis-SCDs, TEDs, patient resuming home Plavix -D/C planning-planning on home with home today -AM labs-hemoglobin this morning 9.7 from 9.4 yesterday. Acute blood loss anemia due to surgical loss and dilutional effect Admission and Anticipated Discharge Date Admission Date: July 08, 2019 Subjective Patient is resting in bed comfortably. She notes pain is tolerable at this time and she is feeling better overall. No complaints of chest pain, sob, dizziness, light headed, nausea or vomiting. Physical Exam Physical Exam: Toes mobile, NVI. Calves soft, non tender. CHARLENE Dressing in place. Results & Data ([facility]) Vital Signs (Past 12 Hours) Vital Signs Temp Pulse Resp BP Pulse Ox 07/10/19 06:26 36.8 C 69 15 159/74 H 95 07/10/19 00:15 36.7 C 67 14 134/69 91
== END 2019-07-10 16:09 | disposition home or self-care (01) | DRG 470 ==
LOC: ASU 07:47 → 3E 12:18